=== PATIENT | female | born 1980 | race Caucasian/White ===

== ENCOUNTER → 2018-01-26 | Outpatient (CLI) | payer MEDICAID | END | disposition home or self-care (01) | LOC: RAD 12:18 | DX: O28.9 Unspecified abnormal findings on antenatal screening of mother (principal); Z3A.00 Weeks of gestation of pregnancy not specified; R76.11 Nonspecific reaction to tuberculin skin test without active tuberculosis | CPT/HCPCS: 71045 ==

== ENCOUNTER 2018-05-11 14:16 | Outpatient (CLI) | payer OTHER ==
[2018-05-11 14:54] LABS: ADD UMIC NO; UR ASCORBIC ACID NEGATIVE (NEGATIVE); UR BACTERIA FEW /HPF (NONE SEEN); UR BILIRUBIN (Dip) NEGATIVE (NEGATIVE); UR BLOOD (Dip) NEGATIVE (NEGATIVE); UR CLARITY SLIGHTLY CLOUDY (CLEAR); UR COLOR STRAW (YELLOW); UR GLUCOSE (Dip) 1+ mg/dL (NEGATIVE); UR KETONES (Dip) NEGATIVE (NEGATIVE); UR LEUKOCYTE ESTERASE (Dip) NEGATIVE Leu/ul (NEGATIVE); UR NITRITE (Dip) NEGATIVE (NEGATIVE); UR RBC 0 /HPF (0-5); UR SPECIFIC GRAVITY (Dip) 1.002 (1.003-1.030); UR SQUAMOUS EPITHELIAL CELL FEW /HPF (FEW); UR TOTAL PROTEIN (Dip) NEGATIVE (NEGATIVE); UR UROBILINOGEN (Dip) NEGATIVE (NEGATIVE); UR WBC 2 /HPF (0-5)
[2018-05-11 15:01] LABS: ADD MAN DIFF? NO
[2018-05-11 15:09] LABS: BASOPHILS % 0.2 % (0.0-2.0); EOSINOPHILS # 0.1 10^3/ul (0.0-0.5); HEMATOCRIT 38.6 % (37.0-47.0); HEMOGLOBIN 13.1 g/dl (12.0-16.0); LYMPHOCYTES # 1.8 10^3/ul (0.8-2.9); LYMPHOCYTES % 22.6 % (15.0-51.0); MEAN CORPUSCULAR HEMOGLOBIN 30.2 pg (29.0-33.0); MEAN CORPUSCULAR HGB CONC 33.9 g/dl (32.0-37.0); MEAN CORPUSCULAR VOLUME 88.9 fl (82.0-101.0); MONOCYTE # 0.6 10^3/ul (0.3-0.9); NEUTROPHIL # 5.4 10^3/ul (1.6-7.5); NEUTROPHILS % 67.7 % (39.0-77.0); PLATELET COUNT 214 10^3/UL (140-415); RED BLOOD COUNT 4.34 10^6/ul (4.20-5.40); RED CELL DISTRIBUTION WIDTH 13.2 % (11.5-14.5)
[2018-05-11 15:23] LABS: ALANINE AMINOTRANSFERASE 18 IU/L (13-69); ALBUMIN 3.4 g/dl (3.3-4.9); ALBUMIN/GLOBULIN RATIO 1.06; ALKALINE PHOSPHATASE 220 IU/L (42-121); ANION GAP 8 (5-13); ASPARTATE AMINO TRANSFERASE 19 IU/L (15-46); BILIRUBIN,INDIRECT 0.2 mg/dl (0-1.1); BILIRUBIN,TOTAL 0.2 mg/dl (0.2-1.3); BLOOD UREA NITROGEN 11 mg/dl (7-20); CALCIUM 9.3 mg/dl (8.4-10.2); CARBON DIOXIDE 22 mmol/L (21-31); CHLORIDE 106 mmol/L (97-110); CREATININE 0.58 mg/dl (0.44-1.00); Estimated GFR > 60 mL/min (>60); GLUCOSE 106 mg/dl (70-220); INR 0.81; POTASSIUM 4.3 mmol/L (3.5-5.1); PROTIME 11.3 Sec (11.9-14.9); PT RATIO 0.9; SODIUM 136 mmol/L (135-144); TOTAL PROTEIN 6.6 g/dl (6.1-8.1); URIC ACID 4.5 mg/dl (3.1-7.9)
[2018-05-11 15:24] LABS: PARTIAL THROMBOPLASTIN TIME 22.9 Sec (23.0-35.0)
== END 2018-05-11 17:10 | disposition home or self-care (01) ==
LOC: OBT 14:16 → L-D 14:16 → OBT 17:10
DX: O24.419 Gestational diabetes mellitus in pregnancy, unspecified control (principal); Z3A.37 37 weeks gestation of pregnancy
CPT/HCPCS: 76818; 80053; 81001; 81003; 84560; 85025; 85384; 85610; 85730

== ENCOUNTER 2018-05-12 19:02 | Inpatient (IN) | payer OTHER ==
[2018-05-12 19:41] LABS: COLLECTION PERIOD 24 hrs
[2018-05-12 19:56] LABS: CREATININE,URINE RANDOM 13.34 mg/dl (20-320)
[2018-05-12 19:57] LABS: COLLECTION PERIOD 24 hrs; SCRET 0.58 mg/dl (0.44-1.00); VOLUME 6200 ml/24hrs; VOLUME 6200 mls
[2018-05-12] MEDS ORDERED: OXYTOCIN 30 UNITS/LR 500 ML IV ×2 (22:30)
[2018-05-12] MEDS ORDERED: BUTORPHANOL 2 MG INJ IV (22:30)
[2018-05-12] MEDS ORDERED: CARBOPROST 250 MCG INJ IM (22:30)
[2018-05-12] MEDS ORDERED: LIDOCAINE 1% (MPF) 30 ML INJ INJ (22:30)
[2018-05-12] MEDS ORDERED: MISOPROSTOL 200 MCG TAB PR (22:30)
[2018-05-13] MEDS ORDERED: ACCU-CHEK XX (06:00)
[2018-05-13] MEDS ORDERED: METOCLOPRAMIDE 10 MG INJ (07:00)
[2018-05-13] MEDS ORDERED: OXYTOCIN 30 UNITS/LR 500 ML BAG IV (07:00)
[2018-05-13] MEDS: CEFAZOLIN 2 GM/50 ML (PMX) 50 ML IVPB ×3 (10:30→23:50)
[2018-05-13 10:53] LABS: ADD MAN DIFF? NO
[2018-05-13 10:56] LABS: BASOPHILS % 0.4 % (0.0-2.0); EOSINOPHILS # 0.1 10^3/ul (0.0-0.5); EOSINOPHILS % 0.9 % (0.0-7.0); HEMATOCRIT 39.4 % (37.0-47.0); HEMOGLOBIN 13.2 g/dl (12.0-16.0); LYMPHOCYTES % 23.6 % (15.0-51.0); MEAN CORPUSCULAR HEMOGLOBIN 30.1 pg (29.0-33.0); MEAN CORPUSCULAR HGB CONC 33.5 g/dl (32.0-37.0); MEAN PLATELET VOLUME 11.9 fl (7.4-10.4); MONOCYTE # 0.5 10^3/ul (0.3-0.9); MONOCYTES % 6.2 % (0.0-11.0); NEUTROPHIL # 5.8 10^3/ul (1.6-7.5); NEUTROPHILS % 68.4 % (39.0-77.0); PLATELET COUNT 200 10^3/UL (140-415); RED BLOOD COUNT 4.38 10^6/ul (4.20-5.40); RED CELL DISTRIBUTION WIDTH 13.2 % (11.5-14.5)
[2018-05-13 10:56] LABS: WHITE BLOOD COUNT 8.5 10^3/ul (4.8-10.8)
[2018-05-13 11:21] LABS: INR 0.83; PROTIME 11.5 Sec (11.9-14.9); PT RATIO 0.9
[2018-05-13 11:22] LABS: PARTIAL THROMBOPLASTIN TIME 24.1 Sec (23.0-35.0)
[2018-05-13 11:43] LABS: HEPATITIS B SURFACE ANTIGEN NEGATIVE (NEGATIVE)
[2018-05-13] MEDS: LACTATED RINGER'S 1,000 ML IV ×3 (15:30→22:12)
[2018-05-13 16:15] LABS: RAPID PLASMA REAGIN NONREACTIVE (NR)
[2018-05-13] MEDS ORDERED: ONDANSETRON 4 MG INJ (16:18)
[2018-05-13] MEDS ORDERED: morphine SULFATE/PF (10 MG/10 ML) INJ (16:18)
[2018-05-13] MEDS ORDERED: PHENYLephrine (100 MCG/ML) 5ML SYG (16:18)
[2018-05-13] MEDS ORDERED: OXYTOCIN 10 UNIT INJ (16:18)
[2018-05-13] MEDS ORDERED: PHENYLephrine 10 MG INJ (17:29)
[2018-05-13] MEDS ORDERED: GLYCOPYRROLATE 0.4 MG INJ (17:32)
[2018-05-13] MEDS: KETOROLAC 30 MG INJ IV (17:34)
[2018-05-13] MEDS: OXYTOCIN 30 UNITS/LR 500 ML IV (17:56)
[2018-05-13] MEDS ORDERED: DIPHENHYDRAMINE 50 MG INJ IV (18:00)
[2018-05-13] MEDS: AZITHROMYCIN 500MG/NS (PMX) 250 ML IVPB (18:00)
[2018-05-13] MEDS ORDERED: ONDANSETRON 4 MG INJ IV (18:00)
[2018-05-13] MEDS ORDERED: morphine 2 MG INJ IV (18:00)
[2018-05-13] MEDS ORDERED: NALOXONE (0.4 MG/ML) INJ IV (18:00)
[2018-05-13] MEDS: BACITRACIN 0.9 GM OINT TOP (18:30)
[2018-05-13] MEDS: METHYLERGONOVINE 0.2 MG INJ IM (18:52)
[2018-05-13] MEDS ORDERED: METHYLERGONOVINE 0.2 MG INJ IM (22:00)
[2018-05-13] MEDS ORDERED: OXYTOCIN 30 UNITS/LR 500 ML IV (22:00)
[2018-05-13] MEDS ORDERED: CARBOPROST 250 MCG INJ IM (22:00)
[2018-05-13] MEDS: SENNA/DOCUSATE NA (8.6MG/50MG) TAB PO (22:00)
[2018-05-13] MEDS ORDERED: MISOPROSTOL 200 MCG TAB PR (22:00)
[2018-05-13] MEDS: LANOLIN HPA 1 PKT TOP (22:12)
[2018-05-13] MEDS: CLINDAMYCIN 300 MG CAP PO (22:21)
[2018-05-14] MEDS: CEFAZOLIN 2 GM/50 ML (PMX) 50 ML IVPB ×3 (06:00→13:51)
[2018-05-14] MEDS: LACTATED RINGER'S 1,000 ML IV ×3 (06:06→23:13)
[2018-05-14] MEDS: CLINDAMYCIN 300 MG CAP PO ×4 (06:42→23:49)
[2018-05-14 06:52] LABS: ADD MAN DIFF? NO
[2018-05-14 06:55] LABS: BASOPHILS % 0.2 % (0.0-2.0); EOSINOPHILS % 0.1 % (0.0-7.0); HEMATOCRIT 29.7 % (37.0-47.0); HEMOGLOBIN 10.2 g/dl (12.0-16.0); LYMPHOCYTES # 1.5 10^3/ul (0.8-2.9); LYMPHOCYTES % 8.9 % (15.0-51.0); MEAN CORPUSCULAR HEMOGLOBIN 30.8 pg (29.0-33.0); MEAN CORPUSCULAR HGB CONC 34.3 g/dl (32.0-37.0); MEAN CORPUSCULAR VOLUME 89.7 fl (82.0-101.0); MEAN PLATELET VOLUME 11.9 fl (7.4-10.4); MONOCYTE # 0.8 10^3/ul (0.3-0.9); MONOCYTES % 4.8 % (0.0-11.0); NEUTROPHIL # 14.6 10^3/ul (1.6-7.5); NEUTROPHILS % 85.5 % (39.0-77.0); PLATELET COUNT 167 10^3/UL (140-415); RED BLOOD COUNT 3.31 10^6/ul (4.20-5.40); RED CELL DISTRIBUTION WIDTH 13.4 % (11.5-14.5)
[2018-05-14] MEDS: ACCU-CHEK XX ×4 (07:30→21:21)
[2018-05-14] MEDS: metFORMIN (XR) 500 MG TAB PO ×2 (08:29→21:17)
[2018-05-14] MEDS: SENNA/DOCUSATE NA (8.6MG/50MG) TAB PO ×2 (08:29→21:17)
[2018-05-14] MEDS: BISACODYL 10 MG SUPP PR (10:31)
[2018-05-14] MEDS: KETOROLAC 30 MG INJ IV (13:51)
[2018-05-14 16:25] LABS: ADD MAN DIFF? NO
[2018-05-14 16:27] LABS: WHITE BLOOD COUNT 15.8 10^3/ul (4.8-10.8)
[2018-05-14 16:27] LABS: BASOPHILS % 0.2 % (0.0-2.0); EOSINOPHILS # 0.1 10^3/ul (0.0-0.5); EOSINOPHILS % 0.4 % (0.0-7.0); HEMATOCRIT 29.2 % (37.0-47.0); HEMOGLOBIN 9.9 g/dl (12.0-16.0); LYMPHOCYTES # 2.1 10^3/ul (0.8-2.9); LYMPHOCYTES % 13.3 % (15.0-51.0); MEAN CORPUSCULAR HEMOGLOBIN 30.6 pg (29.0-33.0); MEAN CORPUSCULAR HGB CONC 33.9 g/dl (32.0-37.0); MEAN CORPUSCULAR VOLUME 90.1 fl (82.0-101.0); MEAN PLATELET VOLUME 11.6 fl (7.4-10.4); MONOCYTE # 0.7 10^3/ul (0.3-0.9); MONOCYTES % 4.6 % (0.0-11.0); NEUTROPHIL # 12.8 10^3/ul (1.6-7.5); NEUTROPHILS % 81.1 % (39.0-77.0); PLATELET COUNT 163 10^3/UL (140-415); RED BLOOD COUNT 3.24 10^6/ul (4.20-5.40); RED CELL DISTRIBUTION WIDTH 13.5 % (11.5-14.5)
[2018-05-14] MEDS ORDERED: HYDROCODONE/APAP (5/325) TAB PO (18:00)
[2018-05-14] MEDS: CIPROFLOXACIN 500 MG TAB PO (18:33)
[2018-05-14] MEDS: IBUPROFEN 800 MG TAB PO (21:17)
[2018-05-14] MEDS: OXYCODONE/ACETAMINOPHEN (5/325) TAB PO (22:23)
[2018-05-15] MEDS: OXYCODONE/ACETAMINOPHEN (5/325) TAB PO (03:55)
[2018-05-15] MEDS: LACTATED RINGER'S 1,000 ML IV (06:00)
[2018-05-15] MEDS: CLINDAMYCIN 300 MG CAP PO ×3 (06:04→17:59)
[2018-05-15] MEDS: IBUPROFEN 800 MG TAB PO ×3 (06:05→22:49)
[2018-05-15] MEDS: CIPROFLOXACIN 500 MG TAB PO ×2 (06:05→17:59)
[2018-05-15] MEDS: ACCU-CHEK XX ×4 (07:30→20:46)
[2018-05-15 08:25] LABS: ADD MAN DIFF? NO
[2018-05-15] MEDS: SENNA/DOCUSATE NA (8.6MG/50MG) TAB PO ×2 (08:28→20:46)
[2018-05-15 08:30] LABS: BASOPHIL # 0.1 10^3/ul (0.0-0.1); BASOPHILS % 0.3 % (0.0-2.0); EOSINOPHILS # 0.1 10^3/ul (0.0-0.5); EOSINOPHILS % 0.8 % (0.0-7.0); HEMATOCRIT 28.3 % (37.0-47.0); HEMOGLOBIN 9.5 g/dl (12.0-16.0); LYMPHOCYTES # 2.2 10^3/ul (0.8-2.9); LYMPHOCYTES % 14.9 % (15.0-51.0); MEAN CORPUSCULAR HEMOGLOBIN 30.9 pg (29.0-33.0); MEAN CORPUSCULAR HGB CONC 33.6 g/dl (32.0-37.0); MEAN CORPUSCULAR VOLUME 92.2 fl (82.0-101.0); MEAN PLATELET VOLUME 12.2 fl (7.4-10.4); MONOCYTE # 0.6 10^3/ul (0.3-0.9); MONOCYTES % 3.9 % (0.0-11.0); NEUTROPHIL # 11.8 10^3/ul (1.6-7.5); NEUTROPHILS % 79.5 % (39.0-77.0); PLATELET COUNT 167 10^3/UL (140-415); RED BLOOD COUNT 3.07 10^6/ul (4.20-5.40); RED CELL DISTRIBUTION WIDTH 13.6 % (11.5-14.5)
[2018-05-15 08:30] LABS: WHITE BLOOD COUNT 14.8 10^3/ul (4.8-10.8)
[2018-05-15] MEDS: metFORMIN (XR) 500 MG TAB PO ×2 (09:03→20:46)
[2018-05-15] MEDS ORDERED: ACETAMINOPHEN 325 MG TAB PO (15:30)
[2018-05-15] MEDS: NA PHOSPHATE/BIPHOS 133 ML ENEMA PR (16:22)
[2018-05-15] MEDS: ACETAMINOPHEN 325 MG TAB PO ×2 (16:22→22:00)
[2018-05-16] MEDS: CLINDAMYCIN 300 MG CAP PO ×3 (00:18→13:23)
[2018-05-16] MEDS: ACETAMINOPHEN 325 MG TAB PO ×2 (04:00→13:24)
[2018-05-16] MEDS: CIPROFLOXACIN 500 MG TAB PO (05:38)
[2018-05-16] MEDS: IBUPROFEN 800 MG TAB PO (05:38)
[2018-05-16 07:55] LABS: ADD MAN DIFF? NO
[2018-05-16 08:02] LABS: BASOPHILS % 0.3 % (0.0-2.0); EOSINOPHILS # 0.3 10^3/ul (0.0-0.5); EOSINOPHILS % 2.1 % (0.0-7.0); HEMATOCRIT 29.6 % (37.0-47.0); HEMOGLOBIN 9.6 g/dl (12.0-16.0); LYMPHOCYTES # 2.2 10^3/ul (0.8-2.9); LYMPHOCYTES % 18.1 % (15.0-51.0); MEAN CORPUSCULAR HEMOGLOBIN 30.3 pg (29.0-33.0); MEAN CORPUSCULAR HGB CONC 32.4 g/dl (32.0-37.0); MEAN CORPUSCULAR VOLUME 93.4 fl (82.0-101.0); MEAN PLATELET VOLUME 11.6 fl (7.4-10.4); MONOCYTE # 0.6 10^3/ul (0.3-0.9); MONOCYTES % 4.8 % (0.0-11.0); NEUTROPHIL # 9.2 10^3/ul (1.6-7.5); NEUTROPHILS % 74.1 % (39.0-77.0); PLATELET COUNT 195 10^3/UL (140-415); RED BLOOD COUNT 3.17 10^6/ul (4.20-5.40); RED CELL DISTRIBUTION WIDTH 13.5 % (11.5-14.5)
[2018-05-16 08:02] LABS: WHITE BLOOD COUNT 12.4 10^3/ul (4.8-10.8)
[2018-05-16] MEDS: metFORMIN (XR) 500 MG TAB PO (08:48)
[2018-05-16] MEDS: SENNA/DOCUSATE NA (8.6MG/50MG) TAB PO (08:48)
[2018-05-16] MEDS: DIPHTH/TET/ACEL PERTUSS (ADULT) 0.5 ML VIAL IM* (08:48)
[2018-05-16] MEDS: MEASLES,MUMPS,RUBELLA VACCINE INJ SC* (08:49)
== END 2018-05-16 16:50 | disposition home or self-care (01) | DRG 788 ==
LOC: OBT 19:02 → PP1 05-14 20:32 → L-D 19:03 → PP1 05-13 20:43 → OBT 21:00 → L-D 21:00
PROC: 10D00Z1 Extraction of Products of Conception, Low, Open Approach (ICD-10-PCS; principal; 2018-05-13 16:45)
DX: O14.94 Unspecified pre-eclampsia, complicating childbirth (principal); O24.429 Gestational diabetes mellitus in childbirth, unspecified control; O34.03 Maternal care for unspecified congenital malformation of uterus, third trimester; Z3A.38 38 weeks gestation of pregnancy; Z37.0 Single live birth
CPT/HCPCS: 82575; 82962; 84156; 85025; 85610; 85730; 86592; 86850; 86900; 86901; 87340; 99464